=== PATIENT | female | born 1970 | race Caucasian/White ===

== ENCOUNTER 2022-12-07 13:51 | Outpatient (CLI) | payer OTHER, SELFPAY | END 2022-12-07 13:52 | disposition home or self-care (01) | PROVIDERS: PCP Nurse Practitioner Family; Referring Provider Nurse Practitioner Family; Visit Provider Physician Assistant | DX: Z01.419 Encounter for gynecological examination (general) (routine) without abnormal findings (principal); R82.90 Unspecified abnormal findings in urine; E03.9 Hypothyroidism, unspecified; E04.1 Nontoxic single thyroid nodule; Z12.4 Encounter for screening for malignant neoplasm of cervix; Z23 Encounter for immunization; Z13.6 Encounter for screening for cardiovascular disorders; Z13.1 Encounter for screening for diabetes mellitus | CPT/HCPCS: 87086; 87186 ==